=== PATIENT | female | born 1980 | race Asian ===

== ENCOUNTER 2016-10-07 11:16 | Emergency (ER) | payer OTHER | END 2016-10-07 14:07 | disposition left against medical advice (07) | LOC: UCEAST 11:16 | DX: R05 Cough (principal); R09.89 Other specified symptoms and signs involving the circulatory and respiratory systems; Z53.21 Procedure and treatment not carried out due to patient leaving prior to being seen by health care provider ==

== ENCOUNTER 2018-01-28 10:36 | Emergency (ER) | payer OTHER ==
--- NOTE | 2018-01-28 11:41 | UC ---
Complaint Female HPI - HPI Summary HPI Summary: vaginal discomfort with pain , dysuria, noted bumps on the vulva - History Of Current Complaint Stated Complaint: STD TESTING Time Seen by Provider: 01/28/18 11:11 Hx Last Menstrual Period: pt has iud ?: Yes Onset/Duration: Sudden Onset Timing: Constant Severity Initially: Moderate Severity Currently: Moderate - Risk Factors Ectopic Risk Factor: Negative Ovarian Torsion Risk Factor: Negative - Allergies/Home Medications Allergies/Adverse Reactions: Allergies Allergy/AdvReac Type Severity Reaction Status Date / Time bee venom protein (honey bee) Allergy Difficulty Verified 01/28/18 11:38 Breathing ibuprofen Allergy Rash Verified 01/28/18 11:38 Home Medications: Home Medications EPINEPHrine [Epipen] 1 unit IM ONCE PRN 01/28/18 [History Confirmed 01/28/18] Sulfamethox/Trimethoprim DS* [Bactrim DS 800/160 TAB*] 1 tab PO BID 01/28/18 [ History Confirmed 01/28/18] PMH/Surg Hx/FS Hx/Imm Hx Previously Healthy: Yes - Surgical History Surgical History: None - Social History Alcohol Use: Rare Substance Use Type: None Smoking Status (MU): Never Smoked Tobacco Review of Systems Constitutional: Negative Skin: Rash Eyes: Negative ENT: Negative Respiratory: Negative Cardiovascular: Negative Gastrointestinal: Negative Genitourinary: Dysuria, Vaginal/Penile Burning, Vaginal/Penile Tenderness Motor: Negative Neurovascular: Negative Musculoskeletal: Negative Neurological: Negative Psychological: Negative Is Patient Immunocompromised?: No All Other Systems Reviewed And Are Negative: Yes Physical Exam Triage Information Reviewed: Yes Appearance: Pain Distress Vital Signs Reviewed: Yes Eye Exam: Normal Eyes: Positive: Conjunctiva Clear ENT Exam: Normal ENT: Positive: Normal ENT inspection Cardiovascular Exam: Normal Cardiovascular: Positive: RRR Pelvic Exam: Positive: Lesions - multiple lesions on the vaginal mucosa, labia majora, red ,raised, papular lesions, some appear to have been vesicular at one point Musculoskeletal Exam: Normal Musculoskeletal: Positive: Strength Intact Neurological Exam: Normal Complaint Female Dx - Differential Dx/Diagnosis Provider Diagnoses: herpes genitalis, candidal vaginitis, gardnarella vaginitis Discharge - Sign-Out/Discharge Documenting (check all that apply): Patient Departure All imaging exams completed and their final reports reviewed: Yes - Discharge Plan Condition: Good Disposition: HOME Prescriptions: Fluconazole 100 MG TAB* [Diflucan 100 MG TAB*] 150 mg PO ONCE #1.5 tab metroNIDAZOLE VAGINAL 0.75%* 1 applic VAGINAL BEDTIME #1 fernando ValACYclovir (*) [Valtrex 500 mg (*)] 1,000 mg PO BID #20 tab Patient Education Materials: Genital Herpes Simplex (ED), Yeast Infection (ED) Referrals: Alex Chacon MD [Primary Care Provider] - - Billing Disposition and Condition Condition: GOOD Disposition: Home
--- NOTE | 2018-01-29 18:24 | UC ---
- Progress Note Progress Note: 01/29/2018 Vaginal samples Positive Gardnerella. Pt Rx Fluconazole PO for Candidiasis. Please call back Pt and notified her of results. Pt was sent a new prescription for Metrogel vaginal applicator. Urine culture was negative. Yuri Peters PA-C Discharge - Sign-Out/Discharge Documenting (check all that apply): Patient Departure - D/C home All imaging exams completed and their final reports reviewed: No Studies - Discharge Plan Condition: Good Disposition: HOME Prescriptions: Fluconazole 100 MG TAB* [Diflucan 100 MG TAB*] 150 mg PO ONCE #1.5 tab ValACYclovir (*) [Valtrex 500 mg (*)] 1,000 mg PO BID #20 tab Patient Education Materials: Genital Herpes Simplex (ED), Yeast Infection (ED) Referrals: Alex Chacon MD [Primary Care Provider] - - Billing Disposition and Condition Condition: GOOD Disposition: Home
--- NOTE | 2018-01-31 19:50 | UC ---
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 no change cira 01/31/18 Discharge - Sign-Out/Discharge Documenting (check all that apply): Post-Discharge Follow Up All imaging exams completed and their final reports reviewed: No Studies - Discharge Plan Condition: Good Disposition: HOME Prescriptions: Fluconazole 100 MG TAB* [Diflucan 100 MG TAB*] 150 mg PO ONCE #1.5 tab metroNIDAZOLE VAGINAL 0.75%* 1 applic VAGINAL BEDTIME #1 fernando ValACYclovir (*) [Valtrex 500 mg (*)] 1,000 mg PO BID #20 tab Patient Education Materials: Genital Herpes Simplex (ED), Yeast Infection (ED) Referrals: Alex Chacon MD [Primary Care Provider] - - Billing Disposition and Condition Condition: GOOD Disposition: Home
== END 2018-01-28 11:58 | disposition home or self-care (01) ==
LOC: UCEAST 10:36
DX: A60.04 Herpesviral vulvovaginitis (principal); B37.3 Candidiasis of vulva and vagina; B96.89 Other specified bacterial agents as the cause of diseases classified elsewhere; R30.0 Dysuria; Z88.6 Allergy status to analgesic agent; Z91.030 Bee allergy status
CPT/HCPCS: 81003; 87086; 87480; 87491; 87510; 87529; 87591; 87661; 99202; G0463